=== PATIENT | female | born 1955 | race Caucasian/White ===

== ENCOUNTER 2017-09-10 17:12 | Outpatient (CLI) | payer OTHER ==
[2012-09-06 13:10] VITALS: BP 101/55
--- NOTE | 2017-09-10 18:05 | Diagnostic Imaging Report ---
MARKEL FERNANDES [facility] [id number] [facility] [address] [id number] Report Submission Date: September 10, 2017 5:32:15 PM CDT Patient Study Name: PAUL CORREA Date: September 10, 2017 5:16:38 PM CDT Modality Type: DX Gender: F Description: PELVIS : 57 Institution: [facility] Physician: MARKEL FERNANDES Examination: Plain film left hip History: LEFT HIP, PAIN IN LATERAL LEFT HIP, WORSENING X1 MONTH. NO KNOWN INJURY (Hx) Comparison exams: None provided Findings: 2 views of the left hip demonstrate normal cortical margins. Mild superior acetabular spurring. No fracture no dislocation. No soft tissue abnormality. Impression: Mild degenerative changes. No acute appearing osseous abnormality. Electronically signed on September 10, 2017 5:32:15 PM CDT by: Valentín MOTLEY
== END 2017-09-10 17:13 ==
LOC: RAD 17:12
PROVIDERS: ATTEND Family Medicine
DX: M25.552 Pain in left hip (principal)